=== PATIENT | female | born 1970 ===

== ENCOUNTER 2020-08-09 09:35 | Emergency (ER) | payer OTHER ==
[2020-08-09] MEDS ORDERED: Nitroglycerin 0.4 MG Tab.SL SL ONE (09:48)
--- NOTE | 2020-08-09 09:49 | EDM.PDOC ---
ED HPI GENERAL MEDICAL PROBLEM - General Stated Complaint: [id number] heartattack Time Seen by Provider: 08/09/20 09:49 Source of Information: Reports: Patient, RN, RN Notes Reviewed History Limitations: Reports: No Limitations - History of Present Illness INITIAL COMMENTS - FREE TEXT/NARRATIVE: Letha is a 50 y/o female with a history of HTN who presents to the ED via personal vehicle with complaints of midsternal chest pain. The patient reports her pain began approximately 0800 while she was laying in bed. She characterizes the pain as sharp and radiates into the LUQ. She states it waxes and wanes in severity and rates it at a 7/10 at it's worst. Additionally, she reports nausea with dry heaving shortly after the pain began. The patient states she drank four rum drinks last night. She denies recent illness, fever, shaking chills, palpitations, dysuria, diarrhea, or constipation. She has not taken her daily HTN medications this morning prior to arrival. Right Chest Pain Score (Numeric/FACES): 5 - Related Data Allergies Allergy/AdvReac Type Severity Reaction Status Date / Time No Known Allergies Allergy Verified 08/09/20 09:49 Home Meds: Home Meds FLUoxetine HCl [Fluoxetine] 20 mg PO DAILY 08/09/20 [History] amLODIPine Besylate [Amlodipine Besylate] 5 mg PO DAILY 08/09/20 [History] hydroCHLOROthiazide [Hydrochlorothiazide] 12.5 mg PO DAILY 08/09/20 [History] ED ROS GENERAL - Review of Systems Review Of Systems: Comprehensive ROS is negative, except as noted in HPI. ED EXAM, GENERAL - Physical Exam Exam: See Below Exam Limited By: No Limitations General Appearance: Alert, Mild Distress (Pain to chest and LUQ), Obese Eye Exam: Bilateral Eye: EOMI, Normal Inspection, PERRL (3mm) Ears: Normal External Exam, Normal Canal, Hearing Grossly Normal, Normal TMs Ear Exam: Bilateral Ear: Auricle Normal, Canal Normal, TM normal Nose: Normal Inspection, Normal Mucosa, No Blood Throat/Mouth: Normal Inspection, Normal Oropharynx, Normal Voice, No Airway Compromise Head: Atraumatic, Normocephalic Neck: Normal Inspection, Supple, Non-Tender, Full Range of Motion. No: Lymphadenopathy (L), Lymphadenopathy (R) Respiratory/Chest: No Respiratory Distress, Lungs Clear, Normal Breath Sounds, No Accessory Muscle Use. No: Chest Non-Tender, Crackles, Rales, Rhonchi, Wheezing, Stridor Cardiovascular: Normal Peripheral Pulses, Regular Rate, Rhythm, No Edema, No Gallop, No JVD, No Murmur, No Rub, Other (Hypertension) Peripheral Pulses: 2+: Radial (L), Radial (R) GI/Abdominal: Soft, No Distention, No Abnormal Bruit, No Mass, Pelvis Stable, Tender (To LUQ), Abnormal Bowel Sounds (Hyperactive bowel sounds) (Female) Exam: Deferred Rectal (Female) Exam: Deferred Back Exam: Normal Inspection, Full Range of Motion. No: CVA Tenderness (L), CVA Tenderness (R) Extremities: Normal Inspection, Normal Range of Motion, Non-Tender, No Pedal Edema, Normal Capillary Refill Neurological: Alert, Oriented, CN II-XII Intact, Normal Cognition, Normal Gait, No Motor/Sensory Deficits Psychiatric: Normal Affect, Normal Mood Skin Exam: Warm, Dry, Intact, Normal Color, No Rash. No: Cyanosis, Erythema, Jaundice, Mottled, Pallor, Petechiae #1 Interpretation EKG Date: 08/09/20 Time: 09:46 Rhythm: NSR Rate (Beats/Min): 78 [place]: Normal P-Wave: Present QRS: Normal ST-T: Normal QT: Normal HI/PQ Interval: 0.164 Comparison: NA - No Prior EKG EKG Interpretation Comments: NSR; No evidence of acute myocardial ischemia Course - Vital Signs Last Recorded V/S: Last Vital Signs Temp 97.3 F 08/09/20 09:50 Pulse 85 08/09/20 09:50 Resp 20 08/09/20 09:50 BP 140/87 08/09/20 10:54 Pulse Ox 98 08/09/20 09:50 - Orders/Labs/Meds Labs: Laboratory Tests 08/09/20 08/09/20 08/09/20 Range/Units 09:52 09:52 09:52 WBC 8.6 (5.0-10.0) 10^3/uL RBC 4.55 (4.2-5.4) 10^6/uL Hgb 13.5 (12.0-16.0) g/dL Hct 39.8 (37.0-47.0) % MCV 87.5 (80-100) fL MCH 29.7 (27.0-34.0) pg MCHC 33.9 (33.0-35.0) g/dL Plt Count 255 (150-450) 10^3/uL Neut % (Auto) 66.0 (42.2-75.2) % Lymph % (Auto) 21.7 (20.5-50.1) % [place] % (Auto) 9.6 H (2-8) % Eos % (Auto) 2.2 (1.0-3.0) % Baso % (Auto) 0.5 (0.0-1.0) % Sodium 139 (136-145) mmol/L Potassium 3.8 (3.5-5.1) mmol/L Chloride 104 (98-107) mmol/L Carbon Dioxide 25 (21-32) mmol/L Anion Gap 13.8 H (7-13) mEq/L BUN 11 (7-18) mg/dL Creatinine 0.71 (0.55-1.02) mg/dL Est Cr Clr Drug Dosing 90.71 mL/min Estimated GFR (MDRD) > 60 BUN/Creatinine Ratio 15.5 (No establ ref range) Glucose 124 H (70-99) mg/dL Lactic Acid 1.8 (0.4-2.0) mmol/L Calcium 8.0 L (8.5-10.1) mg/dL Magnesium 1.9 (1.8-2.4) mg/dL Total Bilirubin 0.5 (0.2-1.0) mg/dL AST 41 H (15-37) U/L ALT 34 (14-59) U/L Alkaline Phosphatase 62 (46-116) U/L Troponin I High Sens 8 (<=51) pg/mL C-Reactive Protein 1.3 H (0.0-0.9) mg/dL B-Natriuretic Peptide 12 (0-100) pg/ml Total Protein 6.9 (6.4-8.2) g/dL Albumin 3.1 L (3.4-5.0) g/dL Globulin 3.8 Albumin/Globulin Ratio 0.82 Amylase 49 (25-115) U/L Lipase 79 (73-393) U/L Urine Color (YELLOW) Urine Appearance (CLEAR) Urine pH (5.0-9.0) Ur Specific Ord (1.005-1.030) Urine Protein (NEGATIVE) Urine Glucose (UA) (NEGATIVE) Urine Ketones (NEGATIVE) Urine Occult Blood (NEGATIVE) Urine Nitrite (NEGATIVE) Urine Bilirubin (NEGATIVE) Urine Urobilinogen (0.2-1.0) mg/dL Ur Leukocyte Esterase (NEGATIVE) Urine RBC /HPF Urine WBC (0-5/HPF) /HPF Ur Epithelial Cells (NOT SEEN) /HPF Amorphous Sediment (NOT SEEN) /HPF Urine Bacteria (0-FEW/HPF) /HPF Urine Mucus (NOT SEEN) /LPF Urine Opiates Screen (NEGATIVE) Ur Oxycodone Screen (NEGATIVE) Urine Methadone Screen (NEGATIVE) Ur Barbiturates Screen (NEGATIVE) U Tricyclic Antidepress (NEGATIVE) Ur Phencyclidine Scrn (NEGATIVE) Ur Amphetamine Screen (NEGATIVE) U Methamphetamines Scrn (NEGATIVE) Urine MDMA Screen (NEGATIVE) U Benzodiazepines Scrn (NEGATIVE) Urine Cocaine Screen (NEGATIVE) U Marijuana (THC) Screen (NEGATIVE) Ethyl Alcohol < 3 (0) mg/dL 08/09/20 08/09/20 Range/Units 10:10 10:10 WBC (5.0-10.0) 10^3/uL RBC (4.2-5.4) 10^6/uL Hgb (12.0-16.0) g/dL Hct (37.0-47.0) % MCV (80-100) fL MCH (27.0-34.0) pg MCHC (33.0-35.0) g/dL Plt Count (150-450) 10^3/uL Neut % (Auto) (42.2-75.2) % Lymph % (Auto) (20.5-50.1) % [place] % (Auto) (2-8) % Eos % (Auto) (1.0-3.0) % Baso % (Auto) (0.0-1.0) % Sodium (136-145) mmol/L Potassium (3.5-5.1) mmol/L Chloride (98-107) mmol/L Carbon Dioxide (21-32) mmol/L Anion Gap (7-13) mEq/L BUN (7-18) mg/dL Creatinine (0.55-1.02) mg/dL Est Cr Clr Drug Dosing mL/min Estimated GFR (MDRD) BUN/Creatinine Ratio (No establ ref range) Glucose (70-99) mg/dL Lactic Acid (0.4-2.0) mmol/L Calcium (8.5-10.1) mg/dL Magnesium (1.8-2.4) mg/dL Total Bilirubin (0.2-1.0) mg/dL AST (15-37) U/L ALT (14-59) U/L Alkaline Phosphatase (46-116) U/L Troponin I High Sens (<=51) pg/mL C-Reactive Protein (0.0-0.9) mg/dL B-Natriuretic Peptide (0-100) pg/ml Total Protein (6.4-8.2) g/dL Albumin (3.4-5.0) g/dL Globulin Albumin/Globulin Ratio Amylase (25-115) U/L Lipase (73-393) U/L Urine Color Yellow (YELLOW) Urine Appearance Clear (CLEAR) Urine pH 5.5 (5.0-9.0) Ur Specific Ord >= 1.030 (1.005-1.030) Urine Protein Negative (NEGATIVE) Urine Glucose (UA) Negative (NEGATIVE) Urine Ketones Negative (NEGATIVE) Urine Occult Blood Small H (NEGATIVE) Urine Nitrite Negative (NEGATIVE) Urine Bilirubin Negative (NEGATIVE) Urine Urobilinogen 0.2 (0.2-1.0) mg/dL Ur Leukocyte Esterase Negative (NEGATIVE) Urine RBC 0-5 /HPF Urine WBC 0-5 (0-5/HPF) /HPF Ur Epithelial Cells Many H (NOT SEEN) /HPF Amorphous Sediment Few (NOT SEEN) /HPF Urine Bacteria Moderate H (0-FEW/HPF) /HPF Urine Mucus Few H (NOT SEEN) /LPF Urine Opiates Screen Negative (NEGATIVE) Ur Oxycodone Screen Negative (NEGATIVE) Urine Methadone Screen Negative (NEGATIVE) Ur Barbiturates Screen Negative (NEGATIVE) U Tricyclic Antidepress Negative (NEGATIVE) Ur Phencyclidine Scrn Negative (NEGATIVE) Ur Amphetamine Screen Negative (NEGATIVE) U Methamphetamines Scrn Negative (NEGATIVE) Urine MDMA Screen Negative (NEGATIVE) U Benzodiazepines Scrn Negative (NEGATIVE) Urine Cocaine Screen Negative (NEGATIVE) U Marijuana (THC) Screen Negative (NEGATIVE) Ethyl Alcohol (0) mg/dL Meds: Medications Discontinued Medications Generic Name Dose Route Start Last Admin Trade Name Freq PRN Reason Stop Dose Admin Al Hydroxide/Mg Hydroxide 30 ml 08/09/20 10:13 08/09/20 10:47 Gi Cocktail Oral Solution 30 Ml PO 08/09/20 10:14 30 ml ONETIME ONE Administration Amlodipine Besylate 5 mg 08/09/20 10:15 08/09/20 10:54 Amlodipine 5 Mg Tab PO 5 mg DAILY CHRISTELLE Administration Hydrochlorothiazide 12.5 mg 08/09/20 10:14 08/09/20 10:54 Hydrochlorothiazide 25 Mg Tab PO 08/09/20 10:15 12.5 mg ONETIME ONE Administration Sodium Chloride 1,000 mls @ 999 mls/hr 08/09/20 10:13 08/09/20 10:47 Normal Saline IV 08/09/20 11:13 999 mls/hr .BOLUS ONE Administration Nitroglycerin 0.4 mg 08/09/20 09:48 Nitroglycerin 0.4 Mg Tab.Sl SL 08/09/20 09:49 ONETIME ONE Ondansetron HCl 4 mg 08/09/20 10:13 08/09/20 10:47 Ondansetron 4 Mg/2 Ml Sdv IVPUSH 08/09/20 10:14 4 mg ONETIME ONE Administration - Re-Assessments/Exams Free Text/Narrative Re-Assessment/Exam: 08/09/20 Nitro SL administered. Home medications given. Patient verbalized no improvement in symptoms following Nitro. NS 1L bolus initiated. GI cocktail administered. Patient verbalized improvement in symptoms following medication administration. Findings of examination and lab work reviewed with patient and daughter. Patient states she has chronic BV and has a standing prescription with her PCP for metronidazole. OP US advised should symptoms return. Daughter is extremely tearful and anxious, continually states her she wants her mother to leave and go to [place] because something is wrong. Patient remains pleasant and calm. Again reviewed findings of blood work and examination with patient and daughter. US not available, patient state she does not want CT at this time. Discussed supportive cares, as well as red flag signs and symptoms which would warrant reevaluation reviewed. Patient verbalized understanding and agreement with the plan of care. Departure - Departure Time of Disposition: 11:13 Disposition: Home, Self-Care 01 Condition: Good Clinical Impression: Gastritis, bile acid reflux, Bacterial vaginosis Instructions: Gastritis, Adult, [id number] Forms: ED Department Discharge Additional Instructions: Rx: omeprazole 1.) Follow up with your primary care provider following course of omeprazole, sooner should you experience a similar episode despite medication. 2.) Eat a bland diet, avoid spicy, greasy, high-fat foods. 3.) Drink plenty of water to stay hydrated. 4). Avoid alcohol until pain is completely resolved.
[2020-08-09] MEDS ORDERED: GI Cocktail Oral Solution 30 ML PO ONE (10:13)
[2020-08-09] MEDS ORDERED: Sodium Chloride 0.9% 1,000 ML IV ONE (10:13)
[2020-08-09] MEDS ORDERED: Ondansetron 4 MG/2 ML SDV IVPUSH ONE (10:13)
[2020-08-09] MEDS ORDERED: Hydrochlorothiazide 25 MG Tab PO ONE (10:14)
[2020-08-09] MEDS ORDERED: amLODIPine 5 MG Tab PO SCH (10:15)
[2020-08-09 10:21] LABS: ANION GAP 13.8 mEq/L (7-13); CHLORIDE,CL 104 mmol/L (98-107); SODIUM,NA 139 mmol/L (136-145)
== END 2020-08-09 11:37 | disposition home or self-care (01) ==
LOC: DL.ED 09:35
DX: N76.0 Acute vaginitis (principal); K29.70 Gastritis, unspecified, without bleeding; K21.9 Gastro-esophageal reflux disease without esophagitis; B96.89 Other specified bacterial agents as the cause of diseases classified elsewhere; I10 Essential (primary) hypertension
CPT/HCPCS: 36415; 80053; 80305-QW; 80307; 81001; 82150; 83605; 83690; 83735; 83880; 84484; 85025; 86140; 93005; 96374; 99285-25; A9270-GY; J2405; J7030